=== PATIENT | female | born 1960 | race Caucasian/White ===

== ENCOUNTER 2024-08-21 13:56 | Inpatient (IN) | payer OTHER ==
[~2024-08-21] VITALS: Ht 162.6 cm; Wt 51.7 kg
[2024-08-21 15:00] LABS: HEMATOCRIT. 35.3 % (36.0-48.0); HEMOGLOBIN. 11.8 g/dL (12.0-16.0); MEAN CORPUSCULAR HEMOGLOBIN 31.4 pg (28.0-32.0); MEAN CORPUSCULAR HGB CONC 33.5 g/dL (31.0-37.0); MEAN CORPUSCULAR VOLUME 93.9 fL (81.0-99.0); MEAN PLATELET VOLUME 6.9 fl (7.4-10.4); PLATELET 355 x1000/uL (130-400); RED BLOOD CELL COUNT 3.76 mill/uL (4.2-5.4); RED CELL DISTRIBUTION WIDTH 13.4 % (11.6-14.6); WHITE BLOOD COUNT 6.9 x1000/uL (4.5-11.0)
[2024-08-21 15:03] LABS: DIFFERENTIAL COMMENT 1
[2024-08-21 15:06] LABS: CHLORIDE 111 mEq/L (98-107); POTASSIUM 3.7 mEq/L (3.5-5.1); SODIUM 144 mEq/L (136-145)
[2024-08-21 15:07] LABS: CALCIUM 9.7 mg/dL (8.7-10.4); CARBON DIOXIDE 27 mEq/L (21-32)
[2024-08-21 15:10] LABS: D-DIMER 0.56 mg/L FEU (<0.50); PROTHROMBIN TIME 11.3 sec (9.6-11.0)
[2024-08-21 15:12] LABS: CREATININE 0.5 mg/dL (0.6-1.0); GLUCOSE 142 mg/dL (70-105)
[2024-08-21 15:13] LABS: UREA NITROGEN BLOOD 28 mg/dL (9-23)
[2024-08-21 15:14] LABS: ALANINE AMINOTRANSFERASE 16 IU/L (10-49); ALBUMIN 4.4 g/dL (3.2-4.8); ASPARTATE AMINOTRANSFERASE 17 IU/L (<34)
[2024-08-21 15:15] LABS: BILIRUBIN DIRECT 0.2 mg/dL (<=3.0); BILIRUBIN TOTAL 0.7 mg/dL (0.1-1.0); PROTEIN TOTAL 6.8 g/dL (6.0-8.3)
[2024-08-21 15:19] LABS: TROPONIN I HIGH SENSITIVITY < 4 ng/L (3.0-34)
[2024-08-21 15:31] LABS: PLATELET ESTIMATE NORMAL
[2024-08-21] MEDS: LEVOFLOXACIN 750MG PREMIX 150 ML IV ONE (15:41)
[2024-08-21] MEDS: SODIUM CHLORIDE 0.9% (SEPSIS BOLUS) IV ONE (15:41)
[2024-08-21 16:37] LABS: BG BASE EXCESS 1.7 mmol/L (-2.0-3.0); BG CARBOXYHEMOGLOBIN 0.3 % (0.5-1.5); BG DEOXYHEMOGLOBIN 1.6 % (0.0-5.0); BG FRACTION INSPIRED OXYGEN 100; BG HCO3 ACT 25.3 mmol/L (21.0-28.0); BG METHEMOGLOBIN 0.3 % (0.5-1.5); BG OXYGEN SATURATION 98.4 % (94.0-98.0); BG OXYHEMOGLOBIN 97.8 % (94.0-98.0); BG PCO2 36.5 mmHg (32.0-45.0); BG PH 7.459 (7.350-7.450); BG SAMPLE SITE RIGHT RADIAL; BG TOTAL HEMOGLOBIN 12.5 g/dL (12.0-16.0); BG VENT MODE MASK - NRB
[2024-08-21 19:22] LABS: TROPONIN I HIGH SENSITIVITY < 4 ng/L (3.0-34)
[2024-08-21 20:33] VITALS: RESP 33
[2024-08-21] MEDS: ALBUTEROL (0.083%) 2.5MG/3ML NEB HHN STA (20:33)
[2024-08-21] MEDS: IPRATROPIUM BROMIDE (0.02%) 0.5MG/2.5ML NEB HHN STA (20:33)
[2024-08-21] MEDS: VANCOMYCIN 1000MG/250ML 250 ML IV SCH (21:21)
[2024-08-21 21:26] LABS: BG BASE EXCESS -1.4 mmol/L (-2.0-3.0); BG CARBOXYHEMOGLOBIN 0.1 % (0.5-1.5); BG DEOXYHEMOGLOBIN 0.1 % (0.0-5.0); BG FRACTION INSPIRED OXYGEN 100; BG HCO3 ACT 22.5 mmol/L (21.0-28.0); BG OXYGEN SATURATION 99.9 % (94.0-98.0); BG OXYHEMOGLOBIN 99.8 % (94.0-98.0); BG PCO2 35.3 mmHg (32.0-45.0); BG PH 7.423 (7.350-7.450); BG PO2 448.4 mmHg (83.0-108.0); BG SAMPLE SITE RIGHT RADIAL; BG TOTAL HEMOGLOBIN 12.8 g/dL (12.0-16.0); BG VENT MODE MASK - BIPAP
[2024-08-21 23:35] VITALS: RESP 35
[2024-08-22] VITALS (13 sets, daily range): BP systolic 137–167; BP diastolic 78–115; PULSE 92–115; RESP 16–41; TEMP 36.28068–37.39188; O2SAT 97–100
[2024-08-22] MEDS: IOHEXOL-350 100 ML BOTTLE ONE (00:58)
[2024-08-22] MEDS ORDERED: ACETAMINOPHEN 325MG TABLET PO PRN (10:30)
[2024-08-22] MEDS ORDERED: ONDANSETRON HCL 4MG/2ML INJ IV PRN (10:30)
[2024-08-22] MEDS ORDERED: DEXTROSE 50% WATER 50ML SYRINGE IV PRN (12:30)
[2024-08-22] MEDS: INSULIN LISPRO 100 UNITS/ML SUBCUT SCH (13:00)
[2024-08-22] MEDS: LEVOFLOXACIN 750MG PREMIX 150 ML IV SCH (13:10)
[2024-08-22] MEDS: BLOOD SUGAR DIAGNOSTIC STRIP TEST SCH (13:25)
[2024-08-22] MEDS: IPRATROPIUM/ALBUTEROL 0.5-3(2.5)MG/3ML NEB HHN SCH (13:55)
[2024-08-22] MEDS ORDERED: ATOR40TA70 MT (17:13)
[2024-08-22] MEDS ORDERED: CARB-32 MT (17:13)
[2024-08-22] MEDS: ENOXAPARIN 40MG/0.4ML SYR SUBCUT SCH (20:05)
[2024-08-22] MEDS ORDERED: CYCL10TA21 MT (20:07)
[2024-08-22] MEDS ORDERED: METF-416 MT (20:15)
[2024-08-22] MEDS ORDERED: DEXTL MT (20:15)
[2024-08-22] MEDS ORDERED: LEVO100T9 MT (20:15)
[2024-08-22] MEDS ORDERED: LISI20TA31 MT (20:15)
[2024-08-22] MEDS ORDERED: GABA-529 MT (20:15)
[2024-08-22] MEDS ORDERED: POLY17PO3 MT (20:21)
[2024-08-23] VITALS (19 sets, daily range): BP systolic 110–142; BP diastolic 63–90; PULSE 88–112; RESP 18–36; TEMP 36.28068–37.05852; O2SAT 90–100
[2024-08-23 05:09] LABS: CHLORIDE 106 mEq/L (98-107); SODIUM 141 mEq/L (136-145)
[2024-08-23 05:10] LABS: CARBON DIOXIDE 27 mEq/L (21-32)
[2024-08-23 05:11] LABS: CALCIUM 9.6 mg/dL (8.7-10.4)
[2024-08-23 05:15] LABS: CREATININE 0.6 mg/dL (0.6-1.0); GLUCOSE 115 mg/dL (70-105)
[2024-08-23 05:16] LABS: UREA NITROGEN BLOOD 23 mg/dL (9-23)
[2024-08-23 06:21] LABS: HEMATOCRIT. 34.8 % (36.0-48.0); HEMOGLOBIN. 11.9 g/dL (12.0-16.0); MEAN CORPUSCULAR HEMOGLOBIN 31.9 pg (28.0-32.0); MEAN CORPUSCULAR HGB CONC 34.1 g/dL (31.0-37.0); MEAN CORPUSCULAR VOLUME 93.3 fL (81.0-99.0); MEAN PLATELET VOLUME 7.8 fl (7.4-10.4); PLATELET 331 x1000/uL (130-400); RED BLOOD CELL COUNT 3.73 mill/uL (4.2-5.4); RED CELL DISTRIBUTION WIDTH 13.3 % (11.6-14.6); WHITE BLOOD COUNT 9.9 x1000/uL (4.5-11.0)
[2024-08-23 07:21] LABS: DIFFERENTIAL COMMENT 1
[2024-08-23] MEDS: POLYETHYLENE GLYCOL 3350 (17GM) 1 DOSE PACK PO SCH (10:57)
[2024-08-23] MEDS: POTASSIUM CHLORIDE 20MEQ/PACKET PO NR (10:58)
[2024-08-23] MEDS: BISACODYL 10MG SUPP PR PRN (10:58)
[2024-08-23] MEDS: ACETYLCYSTEINE 200MG/ML 20% VIAL 4ML INH SCH (12:14)
[2024-08-23] MEDS: IPRATROPIUM/ALBUTEROL 0.5-3(2.5)MG/3ML NEB HHN SCH (12:14)
[2024-08-23 22:15] LABS: PLATELET ESTIMATE NORMAL
[2024-08-24] VITALS (18 sets, daily range): BP systolic 124–146; BP diastolic 70–96; PULSE 102–115; RESP 15–39; TEMP 36.114–36.55848; O2SAT 92–96
[2024-08-25] VITALS (18 sets, daily range): BP systolic 117–138; BP diastolic 66–87; PULSE 92–121; RESP 18–38; TEMP 36.114–37.28076; O2SAT 92–98
[2024-08-25 05:25] LABS: HEMATOCRIT 36.9 % (36.0-48.0); HEMOGLOBIN 12.4 g/dL (12.0-16.0); MEAN CORPUSCULAR HEMOGLOBIN 31.6 pg (28.0-32.0); MEAN CORPUSCULAR HGB CONC 33.6 g/dL (31.0-37.0); MEAN CORPUSCULAR VOLUME 93.9 fL (81.0-99.0); PLATELET 422 x1000/uL (130-400); RED BLOOD CELL COUNT 3.92 mill/uL (4.2-5.4); RED CELL DISTRIBUTION WIDTH 13.8 % (11.6-14.6); WHITE BLOOD COUNT 9.1 x1000/uL (4.5-11.0)
[2024-08-25 05:27] LABS: CHLORIDE 111 mEq/L (98-107); POTASSIUM 3.8 mEq/L (3.5-5.1); SODIUM 145 mEq/L (136-145)
[2024-08-25 05:28] LABS: CARBON DIOXIDE 25 mEq/L (21-32)
[2024-08-25 05:29] LABS: CALCIUM 10.1 mg/dL (8.7-10.4)
[2024-08-25 05:33] LABS: CREATININE 0.7 mg/dL (0.6-1.0); GLUCOSE 154 mg/dL (70-105); UREA NITROGEN BLOOD 34 mg/dL (9-23)
[2024-08-25] MEDS: METRONIDAZOLE 500MG TABLET PO SCH (22:12)
[2024-08-26] VITALS (18 sets, daily range): BP systolic 102–144; BP diastolic 59–81; PULSE 87–102; RESP 16–36; TEMP 36.114–36.83628; O2SAT 91–100
[2024-08-26] MEDS: BLOOD SUGAR DIAGNOSTIC STRIP TEST SCH
[2024-08-26] MEDS: QUETIAPINE FUMARATE 50MG TABLET PO PRN (00:24)
[2024-08-26] MEDS ORDERED: METR-167 MT (09:28)
[2024-08-27] VITALS (17 sets, daily range): BP systolic 108–144; BP diastolic 65–97; PULSE 80–95; RESP 19–33; TEMP 36.28068–36.9474; O2SAT 94–99
[2024-08-28] VITALS (10 sets, daily range): BP systolic 108–137; BP diastolic 71–94; PULSE 82–94; RESP 16–30; TEMP 36.44736–36.83628; O2SAT 95–98
== END 2024-08-28 18:05 | disposition home health service (06) | DRG 720 ==
LOC: ER 13:56 → EDBEDREQ 20:49 → EDBEDREQSVC 20:49 → 5EST 08-22 10:01
PROVIDERS: ADMIT Internal Medicine; ATTEND Internal Medicine
PROC: 5A09357 Assistance with Respiratory Ventilation, Less than 24 Consecutive Hours, Continuous Positive Airway Pressure (ICD-10-PCS; principal; 2024-08-21)
PROC: 5A09357 Assistance with Respiratory Ventilation, Less than 24 Consecutive Hours, Continuous Positive Airway Pressure (ICD-10-PCS; 2024-08-22)
PROC: 5A09357 Assistance with Respiratory Ventilation, Less than 24 Consecutive Hours, Continuous Positive Airway Pressure (ICD-10-PCS; 2024-08-23)
DX: A41.9 Sepsis, unspecified organism (principal); J96.21 Acute and chronic respiratory failure with hypoxia; J69.0 Pneumonitis due to inhalation of food and vomit; G93.41 Metabolic encephalopathy; E07.9 Disorder of thyroid, unspecified; E11.9 Type 2 diabetes mellitus without complications; Z20.822 Contact with and (suspected) exposure to COVID-19; G80.9 Cerebral palsy, unspecified; E87.6 Hypokalemia; R13.10 Dysphagia, unspecified; I10 Essential (primary) hypertension; Z99.81 Dependence on supplemental oxygen; Z93.3 Colostomy status; Z93.1 Gastrostomy status
CPT/HCPCS: 36415; 36600; 71045; 71275; 74018; 80048; 80076; 82375; 82805; 82962; 83036; 83605; 83880; 84145; 84484; 85025; 85027; 85379; 86850; 86900; 87426; 87804; 92610; 93005; 93970; 94640; 94660; 99291; A6261; J1650; J1956; J3370; J7030; J7608; Q9967

== ENCOUNTER 2025-09-15 18:31 | Inpatient (IN) | payer MEDICAID ==
[~2025-09-15] VITALS: Ht 157.5 cm; Wt 45.8 kg
[~2025-09-15 18:31] MED LIST: ATOR40TA70 MT; CARB-32 MT; CYCL10TA21 MT; DEXTL MT; GABA-529 MT; LEVO100T9 MT; LISI20TA31 MT; METF-416 MT; METR-167 MT; POLY17PO3 MT
[2025-09-15] MEDS: CEFTRIAXONE 1GM/50ML 50 ML IV ONE (19:00)
[2025-09-15] MEDS: SODIUM CHLORIDE 0.9% (SEPSIS BOLUS) IV ONE (19:00)
[2025-09-15 19:08] LABS: BASOPHILS % 0.5 % (0.0-2.0); EOSINOPHILS % 3.0 % (0.0-5.0); HEMATOCRIT. 35.4 % (36.0-48.0); HEMOGLOBIN. 12.1 g/dL (12.0-16.0); LYMPHOCYTES % 9.3 % (20.0-50.0); MEAN PLATELET VOLUME 8.5 fl (7.4-10.4); MONOCYTES % 7.6 % (2.0-8.0); NEUTROPHILS % 79.6 % (40.0-76.0); PLATELET 231 x1000/uL (130-400); RED BLOOD CELL COUNT 4.03 mill/uL (4.2-5.4); RED CELL DISTRIBUTION WIDTH 14.1 % (11.6-14.6)
[2025-09-15 19:24] LABS: CREATININE 0.5 mg/dL (0.6-1.0); UREA NITROGEN BLOOD 9 mg/dL (9-23)
[2025-09-15 19:25] LABS: PROTEIN TOTAL 7.1 g/dL (6.0-8.3)
[2025-09-15 19:26] LABS: ASPARTATE AMINOTRANSFERASE 20 IU/L (<34); BILIRUBIN DIRECT 0.2 mg/dL (<=3.0)
[2025-09-15 19:27] LABS: BILIRUBIN TOTAL 0.7 mg/dL (0.1-1.0)
[2025-09-15 19:28] LABS: INR 1.0
[2025-09-15] MEDS: AZITHROMYCIN 500MG/250ML 250 ML IV ONE (20:30)
[2025-09-15 20:56] LABS: INFLUENZA TYPE A Presumptive Negative (Pres. Neg.); INFLUENZA TYPE B Presumptive Negative (Pres. Neg.)
[2025-09-15 20:57] LABS: RESPIRATORY SYNCYTIAL VIRUS Not Detected (Not Detectd)
[2025-09-15 20:58] LABS: CLARITY URINE CLEAR (CLEAR); GLUCOSE URINE NEGATIVE (NEGATIVE); KETONES URINE TRACE (NEGATIVE); LEUKOCYTE ESTERASE URINE TRACE (NEGATIVE); NITRITE URINE NEGATIVE (NEGATIVE); OCCULT BLOOD URINE NEGATIVE (NEGATIVE); PH URINE 7.5 (4.5-8.0); PROTEIN URINE NEGATIVE (NEGATIVE); SPECIFIC GRAVITY URINE 1.006 (1.005-1.030); UROBILINOGEN URINE 0.2 E.U./dL (0.2-1.0)
[2025-09-15 22:11] LABS: COLOR URINE STRAW (YELLOW)
[2025-09-15 22:12] LABS: BACTERIA URINE NONE SEEN; RBC URINE NONE SEEN /hpf (0-2); SQUAMOUS EPITHELIAL CELL URINE RARE /lpf (RARE/1+); WBC URINE 0-2 /hpf (0-2)
[2025-09-15 22:57] LABS: BG FRACTION INSPIRED OXYGEN 21; BG SAMPLE SITE RIGHT RADIAL; BG VENT MODE RA
[2025-09-15 22:58] LABS: BG BASE EXCESS 0.8 mmol/L (-2.0-3.0); BG HCO3 ACT 23.0 mmol/L (21.0-28.0); BG PCO2 30.0 mmHg (32.0-45.0); BG PH 7.500 (7.350-7.450); BG PO2 64.0 mmHg (83.0-108.0)
[2025-09-15 22:59] LABS: BG OXYGEN SATURATION 93.0 % (94.0-98.0); BG OXYHEMOGLOBIN 0.4 % (94.0-98.0); BG SODIUM 0.3 mmol/L (135.0-148.0); BG TOTAL HEMOGLOBIN 12.5 g/dL (12.0-16.0)
[2025-09-15 23:00] LABS: BG DEOXYHEMOGLOBIN 7.1 % (0.0-5.0)
[2025-09-15] MEDS ORDERED: ACETAMINOPHEN 325MG SUPP PR ONE (23:00)
[2025-09-15] MEDS: ACETAMINOPHEN 650MG SUPP PR NR (23:29)
[2025-09-16] VITALS (7 sets, daily range): BP systolic 140–168; BP diastolic 70–90; PULSE 94–120; RESP 14–20; TEMP 36.8–37.3; O2SAT 96–99
[2025-09-16] MEDS ORDERED: DOCUSATE SODIUM 100MG CAPSULE PO PRN
[2025-09-16] MEDS ORDERED: ONDANSETRON HCL 4MG/2ML INJ IV PRN
[2025-09-16] MEDS ORDERED: GUAIFENESIN 200MG/10ML SUGAR FREE UDC PO PRN
[2025-09-16] MEDS ORDERED: MAGNESIUM/ALUMINUM HYDROXIDE/SIMETHICONE 30ML UDC PO PRN
[2025-09-16] MEDS ORDERED: IPRATROPIUM/ALBUTEROL 0.5-3(2.5)MG/3ML NEB HHN PRN
[2025-09-16] MEDS ORDERED: DEXTROSE 50% WATER 50ML SYRINGE IV PRN
[2025-09-16] MEDS ORDERED: ACETAMINOPHEN 325MG TABLET PO PRN
[2025-09-16] MEDS: SODIUM CHLORIDE 0.9% 1,000 ML IV SCH (02:16)
[2025-09-16] MEDS: INSULIN LISPRO 100 UNITS/ML SUBCUT SCH (06:18)
[2025-09-16] MEDS: LEVOTHYROXINE SODIUM 100MCG TABLET PEG SCH (06:18)
[2025-09-16] MEDS: BLOOD SUGAR DIAGNOSTIC STRIP TEST SCH (06:19)
[2025-09-16 07:41] LABS: *AMPHETAMINES SCREEN URINE NEGATIVE (NEGATIVE); *BENZODIAZEPINES SCREEN URINE NEGATIVE (NEGATIVE)
[2025-09-16 07:42] LABS: *BARBITURATES SCREEN URINE NEGATIVE (NEGATIVE); *COCAINE SCREEN URINE NEGATIVE (NEGATIVE); CANNABINOID URINE SCREEN NEGATIVE (NEGATIVE); ECSTASY MDMA SCREEN URINE NEGATIVE (NEGATIVE); METHADONE URINE SCREEN NEGATIVE (NEGATIVE); OPIATES URINE SCREEN NEGATIVE (NEGATIVE); PHENCYCLIDINE URINE SCREEN NEGATIVE (NEGATIVE)
[2025-09-16 08:42] LABS: BASOPHILS % 0.2 % (0.0-2.0); EOSINOPHILS % 1.6 % (0.0-5.0); HEMATOCRIT. 35.5 % (36.0-48.0); HEMOGLOBIN. 12.1 g/dL (12.0-16.0); LYMPHOCYTES % 8.1 % (20.0-50.0); MEAN PLATELET VOLUME 8.7 fl (7.4-10.4); MONOCYTES % 7.4 % (2.0-8.0); NEUTROPHILS % 82.7 % (40.0-76.0); PLATELET 212 x1000/uL (130-400); RED BLOOD CELL COUNT 4.03 mill/uL (4.2-5.4); RED CELL DISTRIBUTION WIDTH 14.0 % (11.6-14.6)
[2025-09-16 08:45] LABS: TROPONIN I HIGH SENSITIVITY < 4 ng/L (3.0-34)
[2025-09-16 08:49] LABS: CREATININE 0.5 mg/dL (0.6-1.0); TRIGLYCERIDE 58 mg/dL (0-150); UREA NITROGEN BLOOD 7 mg/dL (9-23)
[2025-09-16 08:50] LABS: LDL CHOLESTEROL 61 mg/dL (5-100)
[2025-09-16 08:51] LABS: T4 FREE 1.41 ng/dL (0.89-1.76)
[2025-09-16] MEDS: IPRATROPIUM/ALBUTEROL 0.5-3(2.5)MG/3ML NEB HHN SCH (08:51)
[2025-09-16] MEDS: GABAPENTIN SOLN 300MG/6ML UDC GT SCH (09:50)
[2025-09-16] MEDS: POLYETHYLENE GLYCOL 3350 (17GM) 1 DOSE PACK PEG SCH (09:50)
[2025-09-16] MEDS: ENOXAPARIN 40MG/0.4ML SYR SUBCUT SCH (09:51)
[2025-09-16] MEDS: FERROUS SULFATE 325MG TABLET PO SCH (09:51)
[2025-09-16] MEDS: FOLIC ACID 1MG TABLET PO SCH (09:52)
[2025-09-16] MEDS: LISINOPRIL 20MG TABLET PEG SCH (09:52)
[2025-09-16] MEDS: THIAMINE HCL 100MG TABLET PO SCH (09:52)
[2025-09-16] MEDS: CARBIDOPA/LEVODOPA 25/100MG TABLET PO SCH (09:53)
[2025-09-16] MEDS: ATORVASTATIN CALCIUM 40MG TABLET PEG SCH (09:53)
[2025-09-16] MEDS: PANTOPRAZOLE SODIUM 40 MG/VIAL IV SCH (09:54)
[2025-09-16] MEDS: MULTIVITAMINS,THER W-MINERALS TABLET PO SCH (09:54)
[2025-09-16 10:21] LABS: BG BASE EXCESS -1.0 mmol/L (-2.0-3.0); BG CARBOXYHEMOGLOBIN 1.3 % (0.5-1.5); BG DEOXYHEMOGLOBIN 4.5 % (0.0-5.0); BG FRACTION INSPIRED OXYGEN 21; BG HCO3 ACT 21.6 mmol/L (21.0-28.0); BG METHEMOGLOBIN 0.3 % (0.5-1.5); BG OXYGEN SATURATION 95.4 % (94.0-98.0); BG OXYHEMOGLOBIN 93.9 % (94.0-98.0); BG PCO2 29.7 mmHg (32.0-45.0); BG PH 7.480 (7.350-7.450); BG PO2 73.8 mmHg (83.0-108.0); BG SAMPLE SITE RIGHT BRACHIAL; BG TOTAL HEMOGLOBIN 12.1 g/dL (12.0-16.0); BG VENT MODE ROOM AIR
[2025-09-16] MEDS ORDERED: IOHEXOL-350 100 ML BOTTLE ONE (14:09)
[2025-09-16] MEDS: CEFTRIAXONE 1GM/50ML 50 ML IV SCH (17:17)
[2025-09-16] MEDS: ACETYLCYSTEINE 200MG/ML 20% VIAL 4ML INH SCH (21:31)
[2025-09-17] VITALS: BP 144/70; PULSE 110; RESP 18; TEMP 36.9; O2SAT 98
[2025-09-17] MEDS: DOXYCYCLINE 100MG/100ML 100 ML IV SCH (00:07)
[2025-09-17] MEDS: CYCLOBENZAPRINE 10MG TABLET PEG SCH (00:10)
[2025-09-17 01:17] VITALS: PULSE 105; RESP 18; O2SAT 95
[2025-09-17 04:00] VITALS: BP 176/60; PULSE 112; RESP 18; TEMP 36.8; O2SAT 99
[2025-09-17] MEDS: ACETAMINOPHEN 325MG TABLET PO PRN (05:05)
[2025-09-17] MEDS: CLONIDINE 0.1MG TABLET PO PRN (05:08)
[2025-09-17 06:43] LABS: BASOPHILS % 0.3 % (0.0-2.0); EOSINOPHILS % 0.6 % (0.0-5.0); HEMATOCRIT. 34.3 % (36.0-48.0); HEMOGLOBIN. 11.8 g/dL (12.0-16.0); LYMPHOCYTES % 7.5 % (20.0-50.0); MEAN PLATELET VOLUME 9.2 fl (7.4-10.4); MONOCYTES % 6.9 % (2.0-8.0); NEUTROPHILS % 84.7 % (40.0-76.0); PLATELET 211 x1000/uL (130-400); RED BLOOD CELL COUNT 3.92 mill/uL (4.2-5.4); RED CELL DISTRIBUTION WIDTH 13.8 % (11.6-14.6)
[2025-09-17 07:13] LABS: CREATININE 0.5 mg/dL (0.6-1.0); UREA NITROGEN BLOOD 11 mg/dL (9-23)
[2025-09-17 07:15] LABS: PHOSPHORUS 3.7 mg/dL (2.5-4.9)
[2025-09-17 08:00] VITALS: BP 141/62; PULSE 91; RESP 19; TEMP 36.5; O2SAT 97
[2025-09-17] MEDS ORDERED: AZIT500T8 MT (09:08)
[2025-09-17 15:00] VITALS: BP 151/76; PULSE 76; RESP 19; TEMP 97.9
== END 2025-09-17 16:15 | disposition home health service (06) | DRG 720 ==
LOC: ER 18:31 → EDBEDREQ 23:10 → EDBEDREQTM 23:10 → 8WST 23:54
PROVIDERS: ADMIT Internal Medicine; ATTEND Internal Medicine
DX: A41.9 Sepsis, unspecified organism (principal); J96.01 Acute respiratory failure with hypoxia; J69.0 Pneumonitis due to inhalation of food and vomit; E87.3 Alkalosis; G23.1 Progressive supranuclear ophthalmoplegia [Steele-Richardson-Olszewski]; R13.10 Dysphagia, unspecified; R47.01 Aphasia; J18.9 Pneumonia, unspecified organism; E03.9 Hypothyroidism, unspecified; E11.9 Type 2 diabetes mellitus without complications; I10 Essential (primary) hypertension; Z93.1 Gastrostomy status; Z93.3 Colostomy status; Z74.01 Bed confinement status; Z79.84 Long term (current) use of oral hypoglycemic drugs; Z79.899 Other long term (current) drug therapy; Z87.01 Personal history of pneumonia (recurrent)
CPT/HCPCS: 36415; 36600; 71045; 71275; 80048; 80051; 80061; 80076; 80305; 81003; 82040; 82375; 82805; 82962; 83036; 83605; 83735; 83880; 84100; 84145; 84439; 84443; 84481; 84484; 85025; 85379; 85651; 87420; 87426; 87804; 93005; 94070; 94640; 94667; 96365; 96367; 97163; 99291; J0456; J0696; J1650; J2470; J3490; J7030; J7608; Q9967